=== PATIENT | male | born 1985 | race Caucasian/White ===

== ENCOUNTER 2019-06-10 08:21 | Emergency (ER) | payer SELFPAY ==
[~2019-06-10] VITALS: Ht 170.2 cm; Wt 79.4 kg
[2019-06-10] MEDS ORDERED: VALACYCLOVIR500 MG ORAL (08:33)
--- NOTE | 2019-06-10 08:40 | NUR ---
ED Nurse Note: Patient walked into ED c/o of palpitations started 20 minutes ago. At time of arrival, palpitations subsided however symptoms come intermittently. Reports of near syncopal episode and blurry vision lasting 20-25 minutes. Denies chest pain but reports dizziness. Pt placed on personnel monitor. Bed placed in lowest position. Will continue to monitor.
[2019-06-10 08:45] VITALS: BP 130/93
--- NOTE | 2019-06-10 09:13 | NUR ---
ED Nurse Note: IV started on LAC 20G, patent and asymptomatic. Will continue to monitor.
[2019-06-10 09:17] LABS: BASOPHILS % (AUTO) 1.8 % (0.0-2.0); EOSINOPHILS % (AUTO) 3.2 % (0.0-3.0); HEMATOCRIT 47.2 % (42.0-52.0); HEMOGLOBIN 15.4 G/DL (14.2-18.0); LYMPHOCYTES % (AUTO) 37.9 % (20.0-45.0); MEAN CORPUSCULAR VOLUME 85 FL (80-99); MONOCYTES % (AUTO) 9.7 % (1.0-10.0); NEUTROPHILS % (AUTO) 47.5 % (45.0-75.0); PLATELET COUNT 312 K/UL (150-450); RED BLOOD COUNT 5.55 M/UL (4.70-6.10); RED CELL DISTRIBUTION WIDTH 12.9 % (11.6-14.8); WHITE BLOOD COUNT 5.1 K/UL (4.8-10.8)
[2019-06-10 09:37] LABS: ANION GAP 7 mmol/L (5-15); BLOOD UREA NITROGEN 10 mg/dL (7-18); CALCIUM 9.6 MG/DL (8.5-10.1); CARBON DIOXIDE 29 MMOL/L (21-32); CHLORIDE 102 MMOL/L (98-107); CREATININE 1.2 MG/DL (0.55-1.30); POTASSIUM 3.4 MMOL/L (3.5-5.1); SODIUM 138 MMOL/L (136-145)
[2019-06-10 09:53] LABS: ALANINE AMINOTRANSFERASE 32 U/L (12-78); ALBUMIN 4.3 G/DL (3.4-5.0); ALBUMIN/GLOBULIN RATIO 1.3 (1.0-2.7); ALKALINE PHOSPHATASE 59 U/L (46-116); ASPARTATE AMINO TRANSFERASE 23 U/L (15-37); BILIRUBIN,TOTAL 0.9 MG/DL (0.2-1.0); CKMB 1.3 NG/ML (0.0-3.6); CREATINE KINASE 179 U/L (26-308)
--- NOTE | 2019-06-10 09:53 | Emergency Room Report ---
History of Present Illness General Chief Complaint: Palpitations Source: Patient Present Illness HPI Patient presents emergency department today complaining of palpitations weakness presyncope. Patient states that he is been a lot of stress lately. He has some emotional stress going on at home as well as with relationships. In addition he is having trouble with his job as well. 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 Patient also states that he has been on a very strict diet exercise and intensely and has had a lot of weight loss. He also used to abuse marijuana although he stopped and start using it recently last use was a couple days ago he is drinking a lot of coffee as well. Today while he is at work after drinking coffee he felt palpitations chest discomfort shortness of breath and came in for further evaluation. He felt presyncopal and was actually diaphoretic. He denies actual syncope. Denies any chest pain at this time denies any leg pain leg swelling. Denies any recent history of travel. Patient states that he did not eat last night and today only had a banana prior to arrival. No other complaints are noted. Symptoms noted to be severe. Patient has never had episodes as before. Patient is never had syncope before never had chest pain while he was exercising. No history of stimulant use. Patient also states that he had a history of a metal pierced his right index finger. He thinks that still might be in there. This occurred a couple weeks ago. He is able to move his finger without difficulty. No other modifying factors. No other associated signs and symptoms. No other complaints were noted. Allergies: Coded Allergies: No Known Allergies (Unverified , 06/10/19) Patient History Past Medical History: none Past Surgical History: none Pertinent Family History: none Social History: Reports: drug use - Occasional marijuana use; Denies: smoking, alcohol use Reviewed Nursing Documentation: PMH: Agreed; PSxH: Agreed Nursing Documentation-PMH Past Medical History: No Stated History Review of Systems All Other Systems: negative except mentioned in HPI Physical Exam Vital Signs Date Time Temp Pulse Resp B/P (MAP) Pulse Ox O2 Delivery O2 Flow Rate FiO2 06/10/19 08:29 98.2 80 18 126/83 (97) 100 Room Air Sp02 EP Interpretation: reviewed, normal General Appearance: normal inspection, well appearing, no apparent distress, alert Head: atraumatic Eyes: bilateral eye normal inspection ENT: normal ENT inspection, hearing grossly normal, normal voice Neck: normal inspection, full range of motion, supple, no bony tend Respiratory: normal inspection, lungs clear, normal breath sounds, no respiratory distress, no retraction, no wheezing Cardiovascular #1: regular rate, rhythm, no edema Gastrointestinal: normal inspection, normal bowel sounds, non tender, soft, no guarding, no hernia Genitourinary: no CVA tenderness Musculoskeletal: normal inspection, back normal, normal range of motion Neurologic: normal inspection, alert, responsive, speech normal Psychiatric: normal inspection, judgement/insight normal, mood/affect normal Medical Decision Making Diagnostic Impression: Primary Impression: Panic attack Additional Impression: Vasovagal episode ER Course Patient presents emergency department today complaining of presyncope. Patient also complained of possible panic attack. Patient states that he has had several of these episodes in the last few months on reevaluation. Differential diagnosis include acute arrhythmia, anxiety attack, acute coronary syndrome, pulmonary embolism, hyperthyroidism just name a few. Given the severity of the patient's presentation I felt this is a highly complex patient. This patient required extensive workup. Patient was given fluids laboratory work-up was negative. Patient was given Xanax with significant improvement symptoms. Patient was monitored with no further event. Given the patient feels much better, and he had a negative workup, I feel the patient can be discharged home. Patient is advised to follow up with primary doctor in 2-3 days and return the emergency room for any worsening symptoms and as needed. Labs Test 06/10/19 08:45 White Blood Count 5.1 K/UL (4.8-10.8) Red Blood Count 5.55 M/UL (4.70-6.10) Hemoglobin 15.4 G/DL (14.2-18.0) Hematocrit 47.2 % (42.0-52.0) Mean Corpuscular Volume 85 FL (80-99) Mean Corpuscular Hemoglobin 27.8 PG (27.0-31.0) Mean Corpuscular Hemoglobin Concent 32.7 G/DL (32.0-36.0) Red Cell Distribution Width 12.9 % (11.6-14.8) Platelet Count 312 K/UL (150-450) Mean Platelet Volume 6.9 FL (6.5-10.1) Neutrophils (%) (Auto) 47.5 % (45.0-75.0) Lymphocytes (%) (Auto) 37.9 % (20.0-45.0) Monocytes (%) (Auto) 9.7 % (1.0-10.0) Eosinophils (%) (Auto) 3.2 % (0.0-3.0) Basophils (%) (Auto) 1.8 % (0.0-2.0) D-Dimer < 0.19 mg/L FEU Sodium Level 138 MMOL/L (136-145) Potassium Level 3.4 MMOL/L (3.5-5.1) Chloride Level 102 MMOL/L (98-107) Carbon Dioxide Level 29 MMOL/L (21-32) Anion Gap 7 mmol/L (5-15) Blood Urea Nitrogen 10 mg/dL (7-18) Creatinine 1.2 MG/DL (0.55-1.30) Estimat Glomerular Filtration Rate > 60 mL/min (>60) Glucose Level 89 MG/DL (74-106) Calcium Level 9.6 MG/DL (8.5-10.1) Total Bilirubin 0.9 MG/DL (0.2-1.0) Aspartate Amino Transf (AST/SGOT) 23 U/L (15-37) Alanine Aminotransferase (ALT/SGPT) 32 U/L (12-78) Alkaline Phosphatase 59 U/L (46-116) Total Creatine Kinase 179 U/L (26-308) Creatine Kinase MB 1.3 NG/ML (0.0-3.6) Creatine Kinase MB Relative Index 0.7 Troponin I 0.000 ng/mL (0.000-0.056) Total Protein 7.7 G/DL (6.4-8.2) Albumin 4.3 G/DL (3.4-5.0) Globulin 3.4 g/dL Albumin/Globulin Ratio 1.3 (1.0-2.7) Thyroid Stimulating Hormone (TSH) 2.031 uiU/mL (0.358-3.740) EKG Diagnostic Results Rate: normal Rhythm: NSR ST Segments: no acute changes Rhythm Strip Diag. Results EP Interpretation: yes Rate: 91 Rhythm: NSR, no PVC's, no ectopy Chest X-Ray Diagnostic Results Chest X-Ray Diagnostic Results : Chest X-Ray Ordered: Yes # of Views/Limited/Complete: 1 View Indication: Chest Pain EP Interpretation: Yes Interpretation: no consolidation, no effusion, no pneumothorax Impression: No acute disease Electronically Signed by: Electronically signed by Jose Enrique Whaley MD Other X-Ray Diagnostic Results Other X-Ray Diagnostic Results : X-Ray ordered: Right hand x-ray # of Views/Limited Vs Complete: 3 View Indication: Pain EP Interpretation: Yes Interpretation: no dislocation, no soft tissue swelling, no fractures Impression: No acute disease Electronically Signed by: Electronically signed by Jose Enrique Whaley MD Last Vital Signs Date Time Temp Pulse Resp B/P (MAP) Pulse Ox O2 Delivery O2 Flow Rate FiO2 06/10/19 08:45 98.2 86 20 130/93 98 Room Air Status: improved Disposition: HOME, SELF-CARE Condition: Stable Scripts Alprazolam* (XANAX*) 0.5 Mg Tablet 0.5 MG PO TID, #14 TAB Prov: Jose Enrique Whaley MD 06/10/19 Referrals: NON PHYSICIAN (PCP) Jose Enrique Whaley MD Jun 10, 2019 09:53
--- NOTE | 2019-06-10 10:07 | Diagnostic Imaging Report ---
Indication: Cough Technique: One view of the chest Comparison: none Findings: Lungs and pleural spaces are clear. Heart size is normal. Impression: No acute process
[2019-06-10 10:36] VITALS: BP 125/88
[2019-06-10] MEDS ORDERED: ALPRAZOLAM0.5 MG PO (10:54)
[2019-06-10] MEDS ORDERED: ALPRAZolam 0.5mg tab ORAL ONE (11:00)
[2019-06-10 11:53] VITALS: BP 133/67
--- NOTE | 2019-06-10 11:54 | NUR ---
ED Nurse Note: Patient is being discharged from medical care. D/C instruction and prescription given to patient. Patient verbalized understanding of it. Ambulated out with steady gait with all his belonings. Patient is going home with father.
--- NOTE | 2019-06-10 12:49 | Diagnostic Imaging Report ---
Indication: Right hand pain Technique: 3 views right hand Comparison: none Findings: No acute fractures. No dislocations. The joint spaces are preserved Impression: Negative
[2019-06-10 14:24] LABS: APPEARANCE,URINE CLEAR; BILIRUBIN, URINE NEGATIVE (NEGATIVE); GLUCOSE, URINE (UA) NEGATIVE (NEGATIVE); KETONES,URINE NEGATIVE (NEGATIVE); LEUKOCYTE ESTERASE ,URINE NEGATIVE (NEGATIVE); NITRITE,URINE NEGATIVE (NEGATIVE); PH,URINE 6.5 (4.5-8.0); PROTEIN,URINE NEGATIVE (NEGATIVE); UROBILINOGEN,URINE NORMAL MG/DL (0.0-1.0)
[2019-06-10 14:27] LABS: COLOR,URINE YELLOW
--- NOTE | 2019-06-12 17:37 | Cardiology Report ---
APPROVED REPORT EKG Measurement Heart [id number] Normal sinus rhythm with sinus arrhythmia Normal ECG
== END 2019-06-10 11:53 | disposition home or self-care (01) ==
LOC: EMR 08:50
DX: F41.0 Panic disorder [episodic paroxysmal anxiety] (principal); R55 Syncope and collapse; R07.9 Chest pain, unspecified; M79.641 Pain in right hand
CPT/HCPCS: 36415; 71045; 80053; 81003; 82550; 82553; 84443; 84484; 85025; 85379; 93005; 96360; 99284